=== PATIENT | female | born 1990 | race Caucasian/White ===

== ENCOUNTER 2019-05-12 11:00 | Emergency (ER) | payer OTHER ==
--- OUTSIDE RECORDS SUMMARY | 2019-05-12 11:10 | XMS REPORT | Continuity of Care Document ---
:1990 External Reference #:[id number] Author Name Won Rocha M.D. 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 Onset: 11/25/2014 Anxiety state Won Rocha M.D. Onset: 11/25/2014 Dysthymia Won Rocha M.D. Onset: 11/25/2014 Restless legs Won Rocha M.D. Onset: 11/25/2014 Migraine without aura, not refractory Won Rocha M.D. Onset: 11/25/2014 Opioid dependence, uncomplicated Won Rocha M.D. Onset: 04/17/2015 Dysthymic disorder Won Rocha M.D. Onset: 04/17/2015 Social History Type Date Description Comments Sex Unknown Tobacco Use Start: Unknown End: Former Cigarette Smoker quit Mar 2017, Unknown upon learning she was ; had been smoking ~1/2ppd ETOH Use 11/25/2014 Denies alcohol use Recreational Drug Use Has Used Illegal Drugs In The Past Tobacco Use Start: Unknown End: Patient is a former Unknown smoker Smoking Status Reviewed: 09/14/18 Patient is a former smoker Exercise Type/Frequency Does not exercise Sun Exposure Uses sunscreen Seat Belt/Car Seat Seat Belt Use - Yes Allergies, Adverse Reactions, Alerts Description No Known Drug Allergies Medications Active Medications SIG Qnty Indications Ordering Provider Date Venlafaxine HCL ER take one capsule 30caps F34.1 Won Rocha, 2018 by mouth every M.D. 150mg Caps ER 24HR morning for mood F41.9 Ortho Tri-Cyclen Lo 1 tab by mouth 84tabs Z30.011 Won Rocha, 2018 every day M.D. 0.18/0.215/0.25 mg-25 mcg Tablets Benzoyl Peroxide apply to affected 60gm L70.8 Won Rocha, 10/12/2018 5% Gel area on face every M.D. morning; for acne Clindamycin Phosphate apply to face 60gm L70.8 Won Rocha, 10/12/2018 1% Gel 2x/day, for acne M.D. Topiramate 3 tablets 2x/day; 180tabs G43.009 Won Rocha, 09/14/2018 25mg Tablets for headache M.D. prevention Sumatriptan Succinate take 1/2 tablet by 18tabs G43.009 Won Rocha, 12/20/2017 100mg mouth at first M.D. Tablets sign of migraine headache; may repeat in 2 hours if migraine partially relieved; max 3/wk Buprenorphine HCL 2 tablets 90tabs F11.20 Won Rocha, 05/19/2017 8mg Tablets dissolved under M.D. Sub tongue every morning, 1 every evening; prescriber# [id number]; rx due 03/17/19 Immunizations CPT Code Status Date Vaccine Lot # [id number] Given 05/18/2018 Influenza Virus Vaccine, Quadrivalent, Split, [id number] Preservative Free 79970 Given 11/20/2017 Adacel or Boostrix, TDaP [id number] Given 03/23/2015 Influenza Virus Vaccine, Quadrivalent, Split, [id number] Preservative Free 82376 Given 12/15/2014 Adacel or Boostrix, TDaP [id number] Refused 03/20/2017 Influenza Virus Vaccine, Quadrivalent, Split, Preservative Free [id number] Refused 06/22/2016 Influenza Virus Vaccine, Quadrivalent, Split, Preservative Free Vital Signs Date Vital Result Comment 03/13/2019 11:58am BP Systolic 100 mmHg BP Diastolic 62 mmHg Weight 118.00 lb 02/12/2019 11:28am BP Systolic 98 mmHg BP Diastolic 72 mmHg Weight 118.50 lb Results Test Date Facility Test Result H/L Range Note Urine Drug Screen Inhouse 02/12/2019 In House Ua Cocaine - Ua Opiates - Ua Amphetamines - Urine Methanphetamines - Urine Benzodiazepines QN [place] - Urine Oxycodone QL - Laboratory test 10/16/2018 [facility] Cytology SEE RESULT 1 finding [phone] BELOW GC/Chlamydia 10/16/2018 [facility] Chlamydia Negative Negative Amplified Rna [phone] trachomatis Rna Neisseria gonorrhoeae (GC) Rna Negative Negative Urine Drug Screen Inhouse 09/14/2018 In House Ua Cocaine - Ua Opiates - Ua Amphetamines - Urine Methanphetamines - Urine Benzodiazepines QN [place] - Urine Oxycodone QL - 1 SEE RESULT BELOW Name: VERO MADDEN : [address]: Jesica MCKEON Acct: [id number] Unit: [id number] AGE: 28 Location: [facility] Re10/16/18 SEX: F Status: REG REF SPEC: [id number] SABRA: 10/16/18-[address]: Jesica MCKEON REQ: [id number] RECD: [id number]/17/[id number] STATUS: SOUT _ ORDERED: TP IMAGE ANALYS COMMENTS: [id number] Negative for Intraepithelial lesion or Malignancy A. Ectocervical/Endocervical Specimen Adequacy: Satisfactory of evaluation Transformation zone component identified Patient Information: HPV: Thin Layer Pap Test w/reflex to high risk HPV RNA testing when ASCUS Actual Specimen Date: 10/16/18 Last Menstrual Date: 09/28/18 Spec Date if unknown: 3 yrs ago ?: N Post Menopausal?: N Hysterectomy?: N Previous Abnormal Pap Smears?:N Signed by and Reported on: ChristianoROHIT Luna(ASCP) 1318 This Pap test was evaluated with the assistance of the [employer] App Test Imaging System. Due to cytologic findings at the setter automatic spinning lathe microscope, comprehensive manual rescreening by a Central Scheduler may be required. The Pap Smear is a screening test designed to aid in the detection of premalignant and malignant conditions of the uterine cervix. It is not a diagnostic procedure and should not be used as the sole means of detecting cervical cancer. Both false- positive and false- negative reports do occur. Depending on your risk status, a Pap smear should be obtained and evaluated every 1-3 years. END OF REPORT DEPARTMENT OF PATHOLOGY, [address] [place] [address] Luc Salcido M.D. Director [facility] # [id number] Procedures Date Code Description Status 10/16/2018 74475 IUD Removal Completed Medical Devices Description No Information Available Encounters Type Date Location Provider Dx Diagnosis Office Visit 03/13/2019 Main Office Won Rocha, F11.20 Opioid dependence, 11:30a M.DTino uncomplicated F34.1 Dysthymic disorder F41.9 Anxiety disorder, unspecified G25.81 Restless legs syndrome G43.009 Migraine w/o aura, not intractable, w/o status migrainosus Office Visit 02/12/2019 11:15a Main Office Sridhar Rocha1.20 Opioid dependence, Sue Upton uncomplicated F34.1 Dysthymic disorder F41.9 Anxiety disorder, unspecified G25.81 Restless legs syndrome Office Visit 01/14/2019 11:15a Main Office Aj F11.20 Opioid dependenceWon M.D. uncomplicated G43.009 Migraine w/o aura, not intractable, w/o status migrainosus F34.1 Dysthymic disorder F41.9 Anxiety disorder, unspecified Office Visit 12/10/2018 3:45p Main Office Aj F11.20 Opioid dependenceWon M.D. uncomplicated G43.009 Migraine w/o aura, not intractable, w/o status migrainosus F34.1 Dysthymic disorder F41.9 Anxiety disorder, unspecified Z68.21 Body mass index (BMI) 21.0-21.9, adult Office Visit 11/09/2018 2:45p Main Office Aj F11.20 Opioid dependenceWon M.D. uncomplicated G43.009 Migraine w/o aura, not intractable, w/o status migrainosus F34.1 Dysthymic disorder F41.9 Anxiety disorder, unspecified Office Visit 10/16/2018 3:30p Main Office Jesica Grimm PA Z12.4 Encounter for screening for malignant neoplasm of cervix Z30.432 Encounter for removal of intrauterine contraceptive device Z30.011 Encounter for initial prescription of contraceptive pills Z11.3 Encntr screen for infections w sexl mode of transmiss T83.84xA Pain due to genitourinary prosth dev/grft, initial encounter N92.6 Irregular menstruation, unspecified Office Visit 10/12/2018 4:15p Main Office Aj F11.20 Opioid dependenceWon M.D. uncomplicated G43.009 Migraine w/o aura, not intractable, w/o status migrainosus F34.1 Dysthymic disorder F41.9 Anxiety disorder, unspecified L70.8 Other acne Office Visit 09/14/2018 4:00p Main Office Aj F11.20 Opioid dependenceWon M.D. uncomplicated G43.009 Migraine w/o aura, not intractable, w/o status migrainosus F34.1 Dysthymic disorder F41.9 Anxiety disorder, unspecified Assessments Date Code Description Provider 03/13/2019 F11.20 Opioid dependence, uncomplicated Won Rocha M.D. 03/13/2019 F34.1 Dysthymic disorder Won Rocha M.D. 03/13/2019 F41.9 Anxiety disorder, unspecified Won Rocha M.D. 03/13/2019 G25.81 Restless legs syndrome Won Rocha M.D. 03/13/2019 G43.009 Migraine without aura, not intractable, Won Rocha M.D. without status migra 02/12/2019 F11.20 Opioid dependence, uncomplicated Won Rocha M.D. 02/12/2019 F34.1 Dysthymic disorder Won Rocha M.D. 02/12/2019 F41.9 Anxiety disorder, unspecified Won Rocha M.D. 02/12/2019 G25.81 Restless legs syndrome Won Rocha M.D. 01/14/2019 F11.20 Opioid dependence, uncomplicated Won Rocha M.D. 01/14/2019 G43.009 Migraine without aura, not intractable, Won Rocha M.D. without status migra 01/14/2019 F34.1 Dysthymic disorder Won Rocha M.D. 01/14/2019 F41.9 Anxiety disorder, unspecified Won Rocha M.D. 12/10/2018 F11.20 Opioid dependence, uncomplicated Won Rocha M.D. 12/10/2018 G43.009 Migraine without aura, not intractable, Won Rocha M.D. without status migra 12/10/2018 F34.1 Dysthymic disorder Won Rocha M.D. 12/10/2018 F41.9 Anxiety disorder, unspecified Won Rocha M.D. 12/10/2018 Z68.21 Body mass index (BMI) 21.0-21.9, adult Won Rocha M.D. 11/09/2018 F11.20 Opioid dependence, uncomplicated Won Rocha M.D. 11/09/2018 G43.009 Migraine without aura, not intractable, Won Rocha M.D. without status migra 11/09/2018 F34.1 Dysthymic disorder Won Rocha M.D. 11/09/2018 F41.9 Anxiety disorder, unspecified Won Rocha M.D. 10/16/2018 Z12.4 Encounter for screening for malignant Jesica Grimm PA neoplasm of cervix 10/16/2018 Z30.432 Encounter for removal of intrauterine Jesica Grimm PA contraceptive device 10/16/2018 Z30.011 Encounter for initial prescription of Jesica Grimm PA contraceptive pills 10/16/2018 Z11.3 Encounter for screening for infections with Jesica Grimm PA a predominantly 10/16/2018 T83.84xA Pain due to genitourinary prosthetic Jesica Grimm PA devices, implants and g 10/16/2018 N92.6 Irregular menstruation, unspecified Jesica Grimm PA 10/12/2018 F11.20 Opioid dependence, uncomplicated Won Rocha M.D. 10/12/2018 G43.009 Migraine without aura, not intractable, Won Rocha M.D. without status migra 10/12/2018 F34.1 Dysthymic disorder Won Rocha M.D. 10/12/2018 F41.9 Anxiety disorder, unspecified Won Rocha M.D. 10/12/2018 L70.8 Other acne Won Rocha M.D. 09/14/2018 F11.20 Opioid dependence, uncomplicated Won Rocha M.D. 09/14/2018 G43.009 Migraine without aura, not intractable, Won Rocha M.D. without status migra 09/14/2018 F34.1 Dysthymic disorder Won Rocha M.D. 09/14/2018 F41.9 Anxiety disorder, unspecified Won Rocha M.D. Plan of Treatment Future Appointment(s):04/15/2019 11:45 am - Won Rocha M.D. at Main [facility]203/13/2019 - Won Rocha M.D.F11.20 Opioid dependence, uncomplicatedFollow up:RTO 1 afxzsR51.1 Dysthymic sfhlbsjuQ01.9 Anxiety disorder , bqcexsctnppH64.81 Restless legs syndromeComments:very mild Sxs. Observe for now, reconsider gabapentin if Sxs qcnutrosbhnA46.009 Migraine without aura, not intractable, without status migra Functional Status Description No Information Available Mental Status Description No Information Available Referrals Description No Information Available
--- OUTSIDE RECORDS SUMMARY | 2019-05-12 11:10 | XMS REPORT | Continuity of Care Document ---
:1990 External Reference #:[id number] Author Name oWn Rocha M.D. 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 Caps ER 24HR morning for mood F41.9 Ortho Tri-Cyclen Lo 1 tab by mouth 84tabs Z30.011 Aj Won, 2018 every day M.D. 0.18/0.215/0.25 mg-25 mcg [...] tongue every morning, 1 every evening; prescriber# [id number]; rx due 04/16/19 History Medications Venlafaxine HCL ER take one capsule 30caps F34.1 Won Rocha, 2018 - by mouth every M.D. 04/15/2019 150mg Caps ER 24HR morning for mood F41.9 Immunizations CPT Code Status Date Vaccine Lot # [id number] Given 05/18/2018 Influenza Virus Vaccine, Quadrivalent, Split, [id number] Preservative Free 67632 Given 11/20/2017 Adacel or Boostrix, TDaP 43243 Given 03/23/2015 Influenza Virus Vaccine, Quadrivalent, Split, [id number] Preservative Free 92375 Given 12/15/2014 Adacel or Boostrix, TDaP [id number] Refused 04/15/2019 Influenza Virus Vaccine, Quadrivalent, Split, Preservative Free 84059 Refused 03/20/2017 Influenza Virus Vaccine, Quadrivalent, Split, Preservative Free [id number] Refused 06/22/2016 Influenza Virus Vaccine, Quadrivalent, Split, Preservative Free Vital Signs Date Vital Result Comment 04/15/2019 12:38pm BP Systolic 108 mmHg BP Diastolic 60 mmHg Weight 121.00 lb w/sneakers 03/13/2019 11:58am BP Systolic 100 mmHg BP Diastolic 62 mmHg Weight 118.00 lb Results Test Date Facility Test Result H/L Range Note Urine Drug Screen Inhouse 02/12/2019 In House Ua Cocaine - Ua Opiates - Ua Amphetamines - Urine Methanphetamines - Urine Benzodiazepines QN [place] - Urine Oxycodone QL - Laboratory test 10/16/2018 [facility] Cytology SEE RESULT 1 finding [phone] BELOW GC/Chlamydia 10/16/2018 [facility] Chlamydia Negative Negative Amplified Rna [phone] trachomatis Rna Neisseria gonorrhoeae (GC) Rna Negative Negative 1 SEE RESULT BELOW Name: VERO MADDEN : [address]: Jesica MCKEON Acct: [id number] Unit: [id number] AGE: 28 Location: [facility] Re10/16/18 SEX: F Status: REG REF SPEC: [id number] SABRA: 10/16/18-[address]: Jesica MCKEON REQ: [id number] RECD: 10/17/[id number] STATUS: SOUT _ ORDERED: TP IMAGE ANALYS COMMENTS: [id number] Negative for Intraepithelial lesion or Malignancy A. [...] Pap Smears?:N Signed by and Reported on: ROHIT Bruner(ASCP) 1318 This Pap test was evaluated with the assistance of the F?rsat Bu F?rsatPrep Test Imaging System. Due to cytologic findings at the red hat engineer microscope, comprehensive manual rescreening by a Wash Oil Pump Operator may be required. The Pap Smear is [...] years. END OF REPORT DEPARTMENT OF PATHOLOGY, [address] [place] [address] Luc Salcido M.D. Director [facility] # [id number] Procedures Date Code Description Status 10/16/2018 87848 IUD Removal Completed Medical Devices Description No Information Available Encounters Type Date Location Provider Dx Diagnosis Office Visit 03/13/2019 Main Office Won Rocha, F11.20 Opioid dependence, 11:30a M.D. uncomplicated F34.1 Dysthymic disorder F41.9 Anxiety disorder, unspecified G25.81 Restless legs syndrome G43.009 Migraine w/o aura, not intractable, w/o status migrainosus Office Visit 02/12/2019 11:15a Main Office Aj F11.20 Opioid dependenceWon M.D. uncomplicated F34.1 Dysthymic disorder F41.9 Anxiety disorder, [...] unspecified Office Visit 10/16/2018 3:30p Main Office Jescia Grimm PA Z12.4 Encounter for screening for malignant neoplasm of cervix Z30.432 Encounter for removal of intrauterine contraceptive device Z30.011 Encounter for initial prescription of contraceptive pills Z11.3 Encntr screen for infections w sexl mode of transmiss T83.84xA Pain due to genitourinary prosth dev/grft, initial encounter N92.6 Irregular menstruation, unspecified Assessments Date Code Description Provider 04/15/2019 F11.20 Opioid dependence, uncomplicated Won Rocha M.D. 04/15/2019 F34.1 Dysthymic disorder Won Rocha M.D. 04/15/2019 F41.9 Anxiety disorder, unspecified Won Rocha M.D. 04/15/2019 G43.009 Migraine without aura, not intractable, Won Rocha M.D. without status migra 04/15/2019 Z23 Encounter for immunization Won Rocha M.D. 03/13/2019 F11.20 Opioid dependence, uncomplicated Won Rocha [...] N92.6 Irregular menstruation, unspecified Jesica Grimm PA Plan of Treatment 04/15/2019 - Won Rocha M.D.F11.20 Opioid dependence, dteeckjmygrsaE33.1 Dysthymic disorderNew Medication:Venlafaxine HCL ER 75 mg - take one capsule by mouth every morning for moodF41.9 Anxiety disorder, unspecifiedNew Medication: Venlafaxine HCL ER 75 mg - take one capsule by mouth every morning for moodG43.009 Migraine without aura, not intractable, without status [id number] Encounter for immunizationComments:Encouraged flu vaccine but she is unwilling noting last time she had one it made her feel sick Functional Status Description No Information Available Mental Status Description No Information Available Referrals Description No Information Available
[2019-05-12 11:25] VITALS: BP 113/64
== END 2019-05-12 11:35 | disposition left against medical advice (07) ==
LOC: UCCORT 11:00
DX: Z53.21 Procedure and treatment not carried out due to patient leaving prior to being seen by health care provider (principal)